=== PATIENT | male | born 1985 | race Caucasian/White ===

== ENCOUNTER 2018-11-08 22:29 | Emergency (ER) | payer OTHER ==
[2018-11-08 22:58] VITALS: BP 149/92; PULSE 96; RESP 18; TEMP 98.1
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
--- NOTE | 2018-11-09 00:07 | XR ---
EXAM: XR Left Ankle Complete, 3 or More Views CLINICAL HISTORY: ITS.REASON XR Reason: Pain TECHNIQUE: Frontal, lateral and oblique views of the left ankle. COMPARISON: None. FINDINGS: Bones/joints: Achilles tendon and plantar fascia enthesophytes. No acute fracture. No dislocation. Soft tissues: Moderate tibiotalar joint effusion. Soft tissue swelling seen about the ankle. IMPRESSION: 1. No fracture or dislocation. 2. Tibiotalar joint effusion and soft tissue swelling about the ankle.
--- NOTE | 2018-11-09 00:10 | XR ---
EXAM: XR Left Foot Complete, 3 or More Views CLINICAL HISTORY: ITS.REASON XR Reason: Pain TECHNIQUE: Frontal, lateral and oblique views of the left foot. COMPARISON: None. FINDINGS: Bones/joints: Plantar fascia and Achilles tendon enthesophytes. No acute fracture. No dislocation. Soft tissues: Moderate tibiotalar joint effusion with soft tissue swelling about the ankle. No radiopaque foreign body. IMPRESSION: 1. No fracture or dislocation. 2. Moderate tibiotalar joint effusion with soft tissue swelling about the ankle.
== END 2018-11-09 00:49 | disposition home or self-care (01) ==
LOC: EC 22:29
DX: S93.402A Sprain of unspecified ligament of left ankle, initial encounter (principal); M25.472 Effusion, left ankle; V18.4XXA Pedal cycle driver injured in noncollision transport accident in traffic accident, initial encounter; Y93.55 Activity, bike riding
CPT/HCPCS: 29515; 99283

== ENCOUNTER → 2021-03-16 | Outpatient (CLI) | payer BC ==
[2021-03-16 23:29] LABS: HCT 41.5 % (39.6-50.0); HGB 13.4 g/dL (13.0-17.0); MCH 29.1 pg (27.0-32.0); MCHC 32.3 g/dL (32.0-37.0); MCV 90.2 fL (80.0-97.0); Mean Platelet Volume 12.5 fL (9.5-12.2); Platelet Count 186 X 10*3/uL (140-440); RDW 13.2 % (11.5-14.5); WBC 5.06 X 10*3/uL (4.50-10.00)
[2021-03-17 01:37] LABS: Erythrocyte Sedimentation Rate 15 mm/Hr (0-15)
[2021-03-17 09:31] LABS: HLA B27 NEGATIVE
[2021-03-17 18:28] LABS: C Reactive Protein <0.4 mg/dL (0.0-0.8); Rheumatoid Factor, Qnt 7 IU/mL (0-15); Uric Acid 10.1 mg/dL (3.7-8.7)
[2021-03-17 19:30] LABS: Streptolysin O Ab(ASO) 314 IU/mL (0-200)
== END | disposition home or self-care (01) ==
LOC: LABWHC1 14:08
PROVIDERS: ATTEND Physician Assistant
DX: M25.572 Pain in left ankle and joints of left foot (principal)
CPT/HCPCS: 36415; 84443; 84550; 85027; 85652; 86038; 86060; 86140; 86431; 86618; 86812